=== PATIENT | female | born 1995 | race Two or more races ===

== ENCOUNTER → 2023-07-22 08:48 | Outpatient (CLI) | payer OTHER | END | disposition home or self-care (01) | LOC: PRENATAL 08:48 | PROVIDERS: ATTEND Obstetrics & Gynecology Maternal & Fetal Medicine | DX: O36.80X0 Pregnancy with inconclusive fetal viability, not applicable or unspecified (principal); Z36.82 Encounter for antenatal screening for nuchal translucency; O30.90 Multiple gestation, unspecified, unspecified trimester; Z36.9 Encounter for antenatal screening, unspecified; Z14.8 Genetic carrier of other disease; Z3A.13 13 weeks gestation of pregnancy ==

== ENCOUNTER → 2023-09-03 14:14 | Outpatient (CLI) | payer OTHER | END | disposition home or self-care (01) | LOC: PRENATAL 14:14 | PROVIDERS: ATTEND Obstetrics & Gynecology Maternal & Fetal Medicine | DX: O35.9XX0 Maternal care for (suspected) fetal abnormality and damage, unspecified, not applicable or unspecified (principal); O35.3XX0 Maternal care for (suspected) damage to fetus from viral disease in mother, not applicable or unspecified; O44.00 Complete placenta previa NOS or without hemorrhage, unspecified trimester; O30.90 Multiple gestation, unspecified, unspecified trimester; Z3A.19 19 weeks gestation of pregnancy ==

== ENCOUNTER 2023-10-08 14:44 | Outpatient (CLI) | payer OTHER | END 2023-10-08 14:45 | disposition home or self-care (01) | LOC: PRENATAL 14:44 | PROVIDERS: ATTEND Obstetrics & Gynecology Maternal & Fetal Medicine | DX: O26.849 Uterine size-date discrepancy, unspecified trimester (principal); O10.019 Pre-existing essential hypertension complicating pregnancy, unspecified trimester; O30.90 Multiple gestation, unspecified, unspecified trimester; Z3A.24 24 weeks gestation of pregnancy ==

== ENCOUNTER 2023-11-05 14:29 | Outpatient (CLI) | payer OTHER | END 2023-11-05 14:30 | disposition home or self-care (01) | LOC: PRENATAL 14:29 | PROVIDERS: ATTEND Obstetrics & Gynecology Maternal & Fetal Medicine | DX: O26.849 Uterine size-date discrepancy, unspecified trimester (principal); O10.019 Pre-existing essential hypertension complicating pregnancy, unspecified trimester; O30.90 Multiple gestation, unspecified, unspecified trimester; Z3A.28 28 weeks gestation of pregnancy ==

== ENCOUNTER 2023-12-03 14:48 | Outpatient (CLI) | payer OTHER | END 2023-12-03 14:50 | disposition home or self-care (01) | LOC: PRENATAL 14:48 | PROVIDERS: ATTEND Obstetrics & Gynecology Maternal & Fetal Medicine | DX: O26.849 Uterine size-date discrepancy, unspecified trimester (principal); O36.8199 Decreased fetal movements, unspecified trimester, other fetus; O10.019 Pre-existing essential hypertension complicating pregnancy, unspecified trimester; O30.90 Multiple gestation, unspecified, unspecified trimester; Z3A.32 32 weeks gestation of pregnancy ==